=== PATIENT | male | born 1985 | race Caucasian/White ===

== ENCOUNTER 2016-10-01 13:31 | Emergency (ER) | payer OTHER ==
[2016-10-01 13:41] VITALS: BP 112/72
--- NOTE | 2016-10-01 13:50 | ED Physician Documentation ---
PD HPI UPPER EXT INJURY - Stated complaint Stated Complaint: LEFT THUMB INJURY - Chief complaint Chief Complaint: Laceration - History obtained from History obtained from: Patient - History of Present Illness Location: Other (Right-handed gentleman who got the end of his left thumb caught in a hydraulic wood splitter while wearing gloves just prior to arrival while working with a friend, not work-related though. Pain is mild. Declines A digital block. He is up-to-date on tetanus.) Review of Systems Constitutional: denies: Fever, Chills Musculoskeletal: denies: Neck pain, Back pain Neurologic: denies: Headache, Head injury PD PAST MEDICAL HISTORY - Past Medical History Past Medical History: No - Past Surgical History Past Surgical History: No - Allergies Allergies/Adverse Reactions: Allergies Allergy/AdvReac Type Severity Reaction Status Date / Time cefprozil [From Cefzil] Allergy Hives Verified 10/01/16 13:38 diphenhydramine HCl * Allergy Hives Verified 10/01/16 13:38 [From Triaminic Allergy] - Social History Does the pt smoke?: Yes Smoking Status: Current every day smoker Does the pt drink ETOH?: No Does the pt have substance abuse?: No - Immunizations Immunizations are current?: Yes Immunizations: TDAP >10years/unknown - POLST Patient has POLST: No PD ED PE NORMAL - Vitals Vital signs reviewed: Yes - General General: Alert and oriented X 3, No acute distress - Extremities Extremities: Other (On the dorsal side of the left thumb there is an abrasion just proximal to the nailbed with some tenderness there and about a 10% subungual hematoma with normal neurovascular status at the tip. He has good range of motion.) - Neuro Neuro: Alert and oriented X 3, Normal speech - Psych Psych: Normal mood, Normal affect Results - Vitals Vitals: Vital Signs - 24 hr 10/01/16 13:36 Temperature 36.3 C L Heart Rate 86 Respiratory 16 Rate Blood Pressure 112/72 O2 Saturation 100 Oxygen O2 Source Room air - Rads (name of study) Left thumb Radiology: EMP read contemporaneously (Unremarkable) Departure - Departure Disposition: 01 Home, Self Care Clinical Impression: Crushing injury of thumb, left Qualifiers: Encounter type: initial encounter Qualified Code(s): S67.02XA - Crushing injury of left thumb, initial encounter Condition: Good Record reviewed to determine appropriate education?: Yes Instructions: ED Crush Injury Finger No Fx Comments: Let your flight surgeon or PCM know that you were here. Discharge Date/Time: 10/01/16 14:27
--- NOTE | 2016-10-01 14:24 | XRAY Preliminary Report ---
Exam: XR Finger(s) LT IMPRESSION: Normal digit radiography. [facility] SITE ID: [id number]
--- NOTE | 2016-10-01 14:27 | XRAY Report ---
EXAM: LEFT FIRST DIGIT RADIOGRAPHY EXAM DATE: 10/01/2016 02:12 PM. CLINICAL HISTORY: Left thumb inj. COMPARISON: None. TECHNIQUE: 3 views. FINDINGS: Bones: Normal. No fracture or bone lesion. Joints: Normal. No subluxations. Soft Tissues: Normal. No soft tissue swelling. IMPRESSION: Normal digit radiography. [facility] Referring Provider Line: [phone] SITE ID: [id number]
== END 2016-10-01 14:27 | disposition home or self-care (01) ==
LOC: ED 13:31
DX: S67.02XA Crushing injury of left thumb, initial encounter (principal); S60.312A Abrasion of left thumb, initial encounter; W31.89XA Contact with other specified machinery, initial encounter; Y99.0 Civilian activity done for income or pay; F17.200 Nicotine dependence, unspecified, uncomplicated
CPT/HCPCS: 73140; 99282; 99283

== ENCOUNTER 2023-05-17 10:26 | Emergency (ER) | payer OTHER ==
[2023-05-17 10:41] VITALS: BP 119/69; O2SAT 100
[2023-05-17] MEDS: CYCLOBENZAPRINE 10 MG TABLET PO STA (11:40)
[2023-05-17] MEDS: KETOROLAC 30 MG/ML VIAL IM STA (11:41)
[2023-05-17] MEDS: ACETAMINOPHEN 325 MG TABLET PO STA (11:42)
[2023-05-17] MEDS: HYDROmorphone 0.5 MG/0.5 ML SYRINGE IM STA (12:06)
--- NOTE | 2023-05-17 12:07 | ED Physician Documentation ---
PD HPI BACK PAIN - Stated complaint Stated Complaint: LOWER BACK PX - Chief complaint Chief Complaint: Back Pain - Additional information Additional information: 37-year-old male presents emergency department for lower back pain. Patient lelia corral that about 6 years ago he had a back injury because he was doing too much heavy lifting but he feels like since then he has been able to manage his pain quite well with almost no back pain flares. He denies any nausea vomiting no incontinence of stool or urine. Patient says that he had a vasectomy about 3 to 4 days ago he said after vasectomy he was laying around resting for about 3 days he got out of his car to go to work and started to feel immediate lower back pain which resembled previous back injuries that he had experienced 6 years ago. He denies any nausea or vomiting no flulike symptoms no fevers or chills. PD PAST MEDICAL HISTORY - Past Medical History Past Medical History: No - Past Surgical History Past Surgical History: No - Present Medications Home Medications: Ambulatory Orders Medication Instructions Recorded Confirmed Cyclobenzaprine [Flexeril] 10 mg PO TID PRN 6 Days #20 tablet 05/17/23 Fexofenadine [Alvina] 60 mg PO DAILY 05/17/23 05/17/23 - Allergies Allergies/Adverse Reactions: Allergies Allergy/AdvReac Type Severity Reaction Status Date / Time cefprozil [From Cefzil] Allergy Hives Verified 05/17/23 11:12 diphenhydramine HCl * Allergy Hives Verified 05/17/23 11:12 [From Triaminic Allergy] - Social History Does the pt smoke?: Yes Smoking Status: Current every day smoker Does the pt drink ETOH?: No Does the pt have substance abuse?: No - Immunizations Immunizations are current?: Yes Immunizations: TDAP >10years/unknown - POLST Patient has POLST: No PD ED PE NORMAL - Vitals Vital signs reviewed: Yes - General General: Alert and oriented X 3, No acute distress, Well developed/nourished - HEENT HEENT: Atraumatic, PERRL - Cardiac Cardiac: RRR - Respiratory Respiratory: No respiratory distress, Clear bilaterally - Abdomen Abdomen: Normal bowel sounds - Back Back: No CVA TTP, No spinal TTP - Derm Derm: Normal color, Warm and dry, No rash PD ED PE EXPANDED - Back Back: Soft tissue tenderness, Limited ROM, Straight leg raise + L. No: Vertebral tenderness Results - Vitals Vitals: Vital Signs - 24 hr 05/17/23 10:35 Temperature 36.3 C L Heart Rate 79 Respiratory 15 Rate Blood Pressure 119/69 O2 Saturation 100 Oxygen O2 Source Room air PD Medical Decision Making - ED course ED course: This patient presents with back pain most consistent with lumbago. Differential diagnoses includes lumbago versus musculoskeletal spasm / strain versus sciatica. Less likely sciatica as straight leg raise test was negative. No back pain red flags on history or physical. Presentation not consistent with malignancy (lack of history of malignancy, lack of B symptoms), fracture (no trauma, no bony tenderness to palpation), cauda equina (no bowel or urinary incontinence/retention, no saddle anesthesia, no distal weakness), AAA, viscus perforation, osteomyelitis or epidural abscess (no IVDU, vertebral tenderness), renal colic, pyelonephritis (afebrile, no CVAT, no urinary symptoms). Given the clinical picture, no indication for imaging at this time. Pain was significantly alleviated after a one-time dose of hydromorphone injection, Toradol injection, and Flexeril. A prescription of Flexeril sent to patient's preferred pharmacy. Patient given return precautions and told to follow-up with primary care provider for physical therapy referral Departure - Departure Disposition: 01 Home, Self Care Clinical Impression: Lower back pain Condition: Stable Instructions: ED Back Care Tips, ED Spasm Back No Trauma Prescriptions: Cyclobenzaprine [Flexeril] 10 mg PO TID PRN 6 Days #20 tablet PRN Reason: Spasms Comments: Thank you for trusting us with your care. We have given you a shot of Toradol here in the emergency department to help with your lower back pain as well as Dilaudid and Flexeril. Going home patient that you are continuing to move around frequently to help recover from this lower back strain. Do not take any more ibuprofen until at least 12 hours from now which is around 1230 as we have already given you an anti-inflammatory (the Toradol injection) you can take 1000 mg of Tylenol every 8 hours for pain and discomfort and please alternate consistently between 20 minutes of ice and 20 minutes of heat with continued gentle stretching motions of your lower back and range of motion activities. I would strongly consider following up with an dry wall applicator to help with your lower back pain and follow-up with your primary care provider for physical therapy referral. Wishing you a speedy recovery. Discharge Date/Time: 05/17/23 12:42
== END 2023-05-17 12:42 | disposition home or self-care (01) ==
LOC: ED 10:26
DX: M54.50 Low back pain, unspecified (principal); F17.200 Nicotine dependence, unspecified, uncomplicated
CPT/HCPCS: 96372; 99283; A9270; J1170

== ENCOUNTER 2023-05-24 21:22 | Emergency (ER) | payer OTHER ==
[2023-05-24] MEDS: KETOROLAC 30 MG/ML VIAL IM STA (22:09)
[2023-05-25] MEDS: TRIAMCINOLONE 40 MG/ML VIAL IM STA (00:17)
[2023-05-25] MEDS: BUPIVACAINE 0.5% PF 10 ML VIAL IM ONE (00:17)
--- NOTE | 2023-05-25 00:47 | ED Physician Documentation ---
History of Present Illness - Stated complaint Stated Complaint: LOW BACK PAIN - Chief complaint Chief Complaint: Back Pain - History obtained from History obtained from: Patient - Additonal information Additional information: 37yM p/w L lower back pain radiating down leg X 1 week, gradual onset, moderate severity without red flags for spinal involvement. denies numbness, weakness. pain with ambulation, twisting, raising legs. pain is worse in am. denies fever, midline pain PD PAST MEDICAL HISTORY - Past Surgical History Past Surgical History: No - Present Medications Home Medications: Ambulatory Orders Medication Instructions Recorded Confirmed Cyclobenzaprine [Flexeril] 10 mg PO TID PRN 6 Days #20 tablet 05/17/23 05/24/23 Fexofenadine [Alvina] 60 mg PO DAILY 05/17/23 05/24/23 Ketorolac [Toradol] 10 mg PO Q6H PRN #20 tablet 05/25/23 Oxycodone HCl/Acetaminophen 1 each PO Q4H PRN #8 tablet 05/25/23 [Percocet 5-325 mg Tablet] - Allergies Allergies/Adverse Reactions: Allergies Allergy/AdvReac Type Severity Reaction Status Date / Time cefprozil [From Cefzil] Allergy Hives Verified 05/24/23 21:28 diphenhydramine HCl * Allergy Hives Verified 05/24/23 21:28 [From Triaminic Allergy] - Social History Does the pt smoke?: Yes Smoking Status: Current every day smoker Does the pt drink ETOH?: No Does the pt have substance abuse?: No - Immunizations Immunizations are current?: Yes Immunizations: TDAP >10years/unknown - POLST Patient has POLST: No Results - Vitals Vitals: Vital Signs - 24 hr 05/24/23 05/25/23 21:29 01:21 Temperature 36.7 C Heart Rate 92 60 Respiratory 20 16 Rate Blood Pressure 133/80 H 114/62 O2 Saturation 97 99 Oxygen O2 Source Room air Procedures - General procedure General procedure: Cleansed with alcohol swab. 2.5cc IM bupivacaine and 0.5cc IM kenalog injected into L lower back at trigger point. EBL 0. Bandage applied. patient tolerated well PD Medical Decision Making - ED course ED course: 37yM p/w L lower back pain radiating down leg X 1 week, gradual onset, moderate severity without red flags for spinal involvement. IM toradol and trigger point injection provided with improvement in pain. return precautions given. plan to f/u pcp for referral to pt as needed. Note that upon discharge patient stated he was unable to walk. percocet provided without relief. IM dilaudid provided with relief. complementary medicine referral provided. Departure - Departure Disposition: Home, Self Care Clinical Impression: Back pain Condition: Stable Instructions: Low Back Pain Self Care Prescriptions: Oxycodone HCl/Acetaminophen [Percocet 5-325 mg Tablet] 1 each PO Q4H PRN #8 tablet PRN Reason: Pain >8 Ketorolac [Toradol] 10 mg PO Q6H PRN #20 tablet PRN Reason: Pain Comments: You were seen in the emergency department for lower back pain. You received an intramuscular injection of toradol, a strong anti-inflammatory medication. You then had a trigger point injection with a combination of kenalog (triamcinolone- a steroid) and bupivicaine numbing medication. Please follow-up with your primary care provider for referral to physical therapy and return to the emergency department if you have any new or worsening symptoms or other concerns. Toradol should not be taken together with ibuprofen/advil or other NSAIDS. For percocet: Do not use when driving or operating heavy machinery. Dispose of any unused pills at your local police station. This medication may cause constipation. If you are prone to constipation then please take with [id number] sennadocusate and MiraLAX. [facility] [employer] ([phone]) Massage therapy [place], [place] [facility] Mass[facility] therapy [address] [place] [address] [place] [facility] [id number] [place] [address] [place] [address], [place] [facility] [address] [place] [address], [place] [facility] You can find complementary medicine and alternative medicine practitioners using the following search engine: [email or web address]
[2023-05-25] MEDS: oxyCODONE/ACET 5/325 Prepack 4 PO STA (01:16)
[2023-05-25 01:24] VITALS: BP 114/62; O2SAT 99
[2023-05-25] MEDS: HYDROmorphone 1 MG/ML CARPUJECT IM STA (01:31)
[2023-05-25] MEDS: LIDOCAINE-MPF 2% 5 ML VIAL IM ONE ×3 (01:34)
== END 2023-05-25 01:45 | disposition home or self-care (01) ==
LOC: EDUNIT# → ED 21:22
DX: M54.50 Low back pain, unspecified (principal); F17.200 Nicotine dependence, unspecified, uncomplicated
CPT/HCPCS: 20552; 96372; 99283; J1170

== ENCOUNTER 2023-06-13 09:14 | Outpatient (CLI) | payer OTHER ==
--- NOTE | 2023-06-13 15:02 | XRAY Report ---
PROCEDURE: Cervical Spine 2-3V INDICATIONS: CERVICAL SPASM TECHNIQUE: 2 view(s) of the cervical spine were acquired. COMPARISON: None. FINDINGS: Bones: No fractures or dislocations to the C7 level. The lateral masses of C1 appear intact on the odontoid view. No suspicious bony lesions. There is loss of normal cervical lordosis. Mild degenera tive disc disease at C4-C5 and C5-C6. Mild facet arthropathy at C3-C4 and C4-C5 bilaterally. Soft tissues: No prevertebral soft tissue swelling. IMPRESSION: 1. Mild degenerative disc and facet disease. 2. Loss of cervical lordosis. Reviewed by: Chon Caro MD on 06/13/2023 3:01 PM PDT Approved by: Chon Caro MD on 06/13/2023 3:01 PM PDT Station ID: [id number]
== END 2023-06-13 09:15 | disposition home or self-care (01) ==
LOC: DI.N 09:14
PROVIDERS: ATTEND Family Medicine
DX: M62.838 Other muscle spasm (principal); M47.812 Spondylosis without myelopathy or radiculopathy, cervical region; M50.321 Other cervical disc degeneration at C4-C5 level